=== PATIENT | female | born 1960 | race Caucasian/White ===

== ENCOUNTER 2022-01-25 03:33 | Emergency (ER) | payer MEDICARE, MEDICAID, SELFPAY ==
--- NOTE | 2022-01-25 03:30 | ECG_ITS ---
APPROVED REPORT Exam: Resting ECG HR:106 bpm ECG Measurements Heart Rate 106 AXES UT 164 P 77 QRSd 91 QRS 105 QT 325 T 69 QTc 387 Conclusion SINUS TACHYCARDIA WITH OCCASIONAL SUPRAVENTRICULAR PREMATURE COMPLEXES RIGHT AXIS DEVIATION [QRS AXIS > 100] PATTERN CONSISTENT WITH PULMONARY DISEASE ABNORMAL ECG UNCONFIRMED REPORT Electronically signed by : Lee Montaño MD 01/26/2022 07:13:29
[2022-01-25 03:39] VITALS: BP 140/89; PULSE 107; RESP 20; TEMP 38.7; O2SAT 95; BMI 28.3
--- NOTE | 2022-01-25 03:48 | HMH.EDURI ---
Discharge Plan Disposition Patient Disposition: Home, Self-Care Prescriptions Prescriptions: New azithromycin [azithromycin] 250 mg tablet 250 mg PO DIRECTED Qty: 6 0RF Rx Instructions: Take two (2) tablets on day #1, then one (1) tablet day #2 thru #5 benzonatate 100 mg Capsule 100 mg PO Q8H Qty: 20 0RF prednisone [prednisone] 20 mg tablet 20 mg PO DAILY Qty: 7 0RF No Action nifedipine 30 mg Tablet Extended Release 24hr 30 mg PO DAILY fluticasone propion-salmeterol [Advair Diskus] 250-50 mcg/dose Blister With Device 1 inh INHALATION Q6HP PRN (Reason: asthma) ibuprofen 800 mg Tablet 800 mg PO Q8HP PRN (Reason: Pain) atenolol 100 mg Tablet 100 mg PO DAILY Lactobacillus acidophilus Tablet 1 tab PO DAILY methocarbamol 750 mg Tablet 750 mg PO BID pantoprazole 40 mg Tablet,Delayed Release (Dr/Ec) 40 mg PO DAILY glimepiride 4 mg Tablet 4 mg PO DAILY hydrochlorothiazide 25 mg Tablet 25 mg PO DAILY losartan 100 mg Tablet 100 mg PO DAILY fluticasone propionate [Flonase Allergy Relief] 50 mcg/actuation [place],Suspension 1 spray INTRANASAL DAILY ascorbic acid (vitamin C) [Vitamin C] 500 mg Tablet Extended Release 500 mg PO DAILY ezetimibe 10 mg Tablet 10 mg PO DAILY [place] 3 Capsule 1 cap PO DAILY rosuvastatin 20 mg Tablet 20 mg PO DAILY duloxetine [Cymbalta] 60 mg Capsule,Delayed Release(Dr/Ec) 60 mg PO DAILY insulin glargine 100 unit/mL (3 mL) Insulin Pen 32 unit SQ DAILY aspirin 81 mg Capsule 81 mg PO DAILY Clinical Impressions Clinical Impression: CAP (community acquired pneumonia), COPD exacerbation, Tobacco use Instructions Patient Instructions: Pneumonia-Adult Discharge ED Provider: Addison Oliveira URI/Sore Throat HPI General Chief Complaint: Upper Respiratory Infection Stated Complaint: SOA Time Seen by Provider: 01/25/22 03:48 Mode of Arrival: EMS Source of Information: Patient, EMS and Medical Record Limitations: No Limitations Description of Symptoms (Recalled from ER Triage Doc. by RN): Pt c/o being ill for prior 3 days with a fever, body aches, headache and productive cough. History of Present Illness HPI Narrative: uri sx and cough over the last few days with achey - uses tob Complaint: fever and cough Onset (ago): day(s) Duration: intermittent Severity: moderate Able to tolerate fluids by mouth: Yes Treatments prior to arrival: acetaminophen Related Data Home Medications Medication Instructions Recorded Confirmed Lactobacillus acidophilus 1 tab PO DAILY GERD 01/25/22 01/25/22 ascorbic acid (vitamin C) 500 mg 500 mg PO DAILY Supplement 01/25/22 01/25/22 tablet,extended release (Vitamin C ER) aspirin 81 mg capsule 81 mg PO DAILY heart health 01/25/22 01/25/22 atenolol 100 mg tablet 100 mg PO DAILY htn 01/25/22 01/25/22 duloxetine 60 mg capsule,delayed 60 mg PO DAILY Pain 01/25/22 01/25/22 release (Cymbalta) ezetimibe 10 mg tablet 10 mg PO DAILY hld 01/25/22 01/25/22 fluticasone 250 mcg-salmeterol 50 1 inh inhalation Q6HP PRN asthma 01/25/22 01/25/22 mcg/dose blistr powdr for inhalation (Advair Diskus) fluticasone propionate 50 1 spray intranasal DAILY allergies 01/25/22 01/25/22 mcg/actuation nasal spray,suspension (Flonase Allergy Relief) glimepiride 4 mg tablet 4 mg PO DAILY dm 01/25/22 01/25/22 hydrochlorothiazide 25 mg tablet 25 mg PO DAILY htn 01/25/22 01/25/22 ibuprofen 800 mg tablet 800 mg PO Q8HP PRN Pain 01/25/22 01/25/22 insulin glargine 100 unit/mL (3 32 unit SQ DAILY dm 01/25/22 01/25/22 mL) subcutaneous pen losartan 100 mg tablet 100 mg PO DAILY htn 01/25/22 01/25/22 methocarbamol 750 mg tablet 750 mg PO BID muscle relaxer 01/25/22 01/25/22 nifedipine 30 mg tablet,extended 30 mg PO DAILY htn 01/25/22 01/25/22 release 24 hr omega-3 fatty acids 1 cap PO DAILY Supplement 01/25/22 01/25/22 pantoprazole
--- NOTE | 2022-01-25 03:53 | XR_ITS ---
PROCEDURE INFORMATION: Exam: XR Chest Exam date and time: 01/25/2022 4:07 AM Age: 61 years old Clinical indication: Cough; Additional info: Cough, aching TECHNIQUE: Imaging protocol: Radiologic exam of the chest. Views: 2 views. COMPARISON: No relevant prior studies available. FINDINGS: Lungs: Focal density is seen along the left lateral mid chest. This could represent focal infiltrate. Pleural spaces: Unremarkable. No pleural effusion. No pneumothorax. Heart/Mediastinum: Unremarkable. No cardiomegaly. Bones/joints: Unremarkable. IMPRESSION: Focal density along the left lateral mid chest, infiltrate versus mass. Consider CT for further evaluation to exclude neoplasm.
[2022-01-25 03:58] LABS: Coronavirus 19, PCR Not Detected (NotDetected); Influenza A, PCR Not Detected (NotDetected); Influenza B, PCR Not Detected (NotDetected)
[2022-01-25 03:59] LABS: Basophils # 0.1 K/mm3 (0-0.2); Basophils % 0.9 % (0.1-2.0); Eosinophils # 0.1 K/mm3 (0.0-0.4); Eosinophils % 0.6 % (0.1-12.0); Hematocrit 44.3 % (37.0-47.0); Hemoglobin 14.4 g/dL (12.2-16.2); Lymphocytes # 1.4 K/mm3 (0.7-4.5); Lymphocytes % 18.2 % (10-50); Mean Corpuscular HGB Conc 32.5 g/dL (31.8-35.4); Mean Corpuscular Hemoglobin 30.7 pg (27.0-31.2); Mean Corpuscular Volume 94.4 fl (81-99); Mean Platelet Volume 8.4 fl (7.4-10.4); Monocytes # 0.5 K/mm3 (0.1-1.0); Monocytes % 6.4 % (1.7-9.3); Neutrophils # 5.7 K/mm3 (1.8-7.8); Neutrophils % 73.9 % (37.0-80.0); Platelet Count 211 K/mm3 (142-424); Red Cell Distribution Width 14.8 % (11.5-17.5); White Blood Count 7.8 K/mm3 (4.8-10.8)
[2022-01-25 04:11] LABS: Alanine Aminotransferase 22 U/L (12-78); Albumin/Globulin Ratio 1.4 (1.1-1.8); Alkaline Phosphatase 101 U/L (38-126); Anion Gap 12.7 mEq/L (5-15); Aspartate Amino Transferase 28 U/L (14-36); Bilirubin,Total 0.4 mg/dl (0.2-1.3); Blood Urea Nitrogen 9 mg/dl (7-17); Carbon Dioxide 24 mmol/L (22.0-30.0); Chloride 99 mmol/L (98-107); Creatinine Clearance Estimated 70 mL/min (50-200); Estimated Glomerular Filt Rate 63 ml/min (>60); GFR (African American) 77 ML/MIN (>60); Globulin 2.8 g/dL (1.3-3.2); Glucose 324 mg/dl (74-100); Sodium 133 mmol/L (136-145); Total Protein,Serum 6.8 g/dl (6.3-8.2)
--- NOTE | 2022-01-25 04:12 | PC.NURSE ---
Pt gone to RAD for xrays
[2022-01-25 04:16] LABS: Potassium 2.7 mmoL/L (3.5-5.1)
--- NOTE | 2022-01-25 04:20 | PC.NURSE ---
Pt back from RAD
[2022-01-25 04:24] LABS: Troponin I < 0.01 ng/ml (0.00-0.034)
--- NOTE | 2022-01-25 05:07 | CT_ITS ---
PROCEDURE INFORMATION: Exam: CT Chest Without Contrast; Diagnostic Exam date and time: 01/25/2022 5:23 AM Age: 61 years old Clinical indication: Abnormal findings; Abnormal radiologic exam of lung or chest; Additional info: Abnormal xray TECHNIQUE: Imaging protocol: Diagnostic computed tomography of the chest without contrast. Radiation optimization: All CT scans at this facility use at least one of these dose optimization techniques: automated exposure control; mA and/or kV adjustment per patient size (includes targeted exams where dose is matched to clinical indication); or iterative reconstruction. COMPARISON: CR XR CHEST 2V 01/25/2022 4:07 AM FINDINGS: Lungs: Focal airspace disease is seen in the lingula. Several air bronchograms are identified. Pleural spaces: Unremarkable. No pneumothorax. No pleural effusion. Heart: Unremarkable. No cardiomegaly. No pericardial effusion. Coronary arteries: Coronary atherosclerosis. Lymph nodes: Unremarkable. No enlarged lymph nodes. Vasculature: Unremarkable. No aortic aneurysm. Bones/joints: Unremarkable. No acute fracture. Soft tissues: This extends up to the left chest wall. No chest wall abnormalities are noted. IMPRESSION: 1. Focal airspace disease in the lingula likely infiltrate. 2. Coronary atherosclerosis.
[2022-01-25 05:22] LABS: Lactic Acid 2.8 mmol/L (0.7-2.1)
--- NOTE | 2022-01-25 05:25 | PC.NURSE ---
pt to ct scan
[2022-01-25 06:30] VITALS: PULSE 88; PULSE 91
[2022-01-25 06:39] VITALS: BP 108/78; PULSE 80; RESP 18; TEMP 36.8; O2SAT 100
[2022-01-25 06:45] LABS: Hemoglobin A1C 8.3 % (4.0-6.0)
--- NOTE | 2022-01-25 07:30 | PC.NURSE ---
0730 DIABETIC DIET SET-UP FOR PT AT THIS TIME
== END 2022-01-25 07:50 | disposition home or self-care (01) ==
PROVIDERS: Emergency Provider Emergency Medicine; PCP Family Medicine
DX: J44.1 Chronic obstructive pulmonary disease with (acute) exacerbation (principal); R50.9 Fever, unspecified; M79.10 Myalgia, unspecified site; R05.9 Cough, unspecified; R51.9 Headache, unspecified; R06.02 Shortness of breath; Z20.822 Contact with and (suspected) exposure to COVID-19; F17.200 Nicotine dependence, unspecified, uncomplicated; Z79.1 Long term (current) use of non-steroidal anti-inflammatories (NSAID); Z79.51 Long term (current) use of inhaled steroids; Z79.52 Long term (current) use of systemic steroids; Z79.82 Long term (current) use of aspirin; Z79.899 Other long term (current) drug therapy; Z88.5 Allergy status to narcotic agent; Z88.8 Allergy status to other drugs, medicaments and biological substances
CPT/HCPCS: 71046; 71250; 80053; 83036; 83605; 84484; 85025; 87040; 87070; 87205; 93005; 96361; 96374; 96375; 99285; C9803; J0456; J0696; U0003; U0005

== ENCOUNTER 2022-11-12 23:17 | Emergency (ER) | payer MEDICARE, MEDICAID, SELFPAY ==
[2022-11-12 23:13] VITALS: BP 90/51; PULSE 73; RESP 16; TEMP 36.8; O2SAT 92; BMI 29.9
[2022-11-12 23:18] VITALS: PULSE 71; O2SAT 93
[2022-11-12 23:18] LABS: POC Glucose,Bedside 207 (70-110)
--- NOTE | 2022-11-12 23:35 | PC.NURSE ---
family at bedside
--- NOTE | 2022-11-13 00:11 | PC.NURSE ---
rounded on patient no new complaints noted.
--- NOTE | 2022-11-13 00:24 | HMH.EDGENADL ---
Discharge Plan Disposition Patient Disposition: Home, Self-Care Prescriptions Prescriptions: No Action nifedipine 30 mg Tablet Extended Release 24hr 30 mg PO DAILY fluticasone propion-salmeterol [Advair Diskus] 250-50 mcg/dose Blister With Device 1 inh INHALATION Q6HP PRN (Reason: asthma) ibuprofen 800 mg Tablet 800 mg PO Q8HP PRN (Reason: Pain) atenolol 100 mg Tablet 100 mg PO DAILY Lactobacillus acidophilus Tablet 1 tab PO DAILY methocarbamol 750 mg Tablet 750 mg PO BID pantoprazole 40 mg Tablet,Delayed Release (Dr/Ec) 40 mg PO DAILY glimepiride 4 mg Tablet 4 mg PO DAILY hydrochlorothiazide 25 mg Tablet 25 mg PO DAILY losartan 100 mg Tablet 100 mg PO DAILY fluticasone propionate [Flonase Allergy Relief] 50 mcg/actuation [place],Suspension 1 spray INTRANASAL DAILY ascorbic acid (vitamin C) [Vitamin C] 500 mg Tablet Extended Release 500 mg PO DAILY ezetimibe 10 mg Tablet 10 mg PO DAILY [place] 3 Capsule 1 cap PO DAILY rosuvastatin 20 mg Tablet 20 mg PO DAILY duloxetine [Cymbalta] 60 mg Capsule,Delayed Release(Dr/Ec) 60 mg PO DAILY insulin glargine 100 unit/mL (3 mL) Insulin Pen 32 unit SQ DAILY aspirin 81 mg Capsule 81 mg PO DAILY azithromycin [azithromycin] 250 mg tablet 250 mg PO DIRECTED Qty: 6 0RF Rx Instructions: Take two (2) tablets on day #1, then one (1) tablet day #2 thru #5 benzonatate 100 mg Capsule 100 mg PO Q8H Qty: 20 0RF prednisone [prednisone] 20 mg tablet 20 mg PO DAILY Qty: 7 0RF Referrals Follow up/Referrals: Provider,Referral, MD [Primary Care Provider] - See instructions Activity Restrictions/Add. Instructions Additional Instructions/Restrictions: Please follow-up with your primary care provider. Please return to the emergency department if you develop any new or worsening symptoms or become concerned for your health. Clinical Impressions Clinical Impression: Alcohol intoxication Qualifiers: Complication of substance-induced condition: with delirium Qualified Code(s): F10.921 - Alcohol use, unspecified with intoxication delirium Instructions Patient Instructions: DI for Altered Mental Status Discharge ED Provider: Haim De La Torre Adult [facility] General Chief complaint: Altered Mental Status Stated complaint: altered mental status Time Seen by Provider: 10/05/23 23:20 Mode of Arrival: EMS Limitations: No Limitations Description of Symptoms (Recalled from ER Triage Doc. by RN): EMS was called due to patient being unresponsive. Patient is alert on arrival, but confused. History of Present Illness HPI narrative: 62-year-old female history of COPD, insulin-dependent diabetes, presents with alcohol intoxication and altered mental status. Patient was reportedly drinking at home with family when she became unresponsive. No reported trauma. They were concerned that her blood sugar was low. On arrival with EMS patient's blood sugar was normal, the 100 range. Patient is awake and interactive, slurred speech, denies chest pain abdominal pain headache dizziness or any other particular symptoms at this time. She reports that she has been drinking whiskey at home, had multiple glasses. She reports that she does not usually drink. She was celebrating/lamenting her recent 62th birthday. Related Data Home Medications Medication Instructions Recorded Confirmed Lactobacillus acidophilus 1 tab PO DAILY GERD 01/25/22 01/25/22 ascorbic acid (vitamin C) 500 mg 500 mg PO DAILY Supplement 01/25/22 01/25/22 tablet,extended release (Vitamin C ER) aspirin 81 mg capsule 81 mg PO DAILY heart health 01/25/22 01/25/22 atenolol 100 mg tablet 100 mg PO DAILY htn 01/25/22 01/25/22 duloxetine 60 mg capsule,delayed 60 mg PO DAILY Pain 01/25/22 01/25/22 release (Cymbalta) ezetimibe 10 mg tablet 10 mg PO DAILY hld 01/25/22 01/25/22 fluticasone 250 mcg-salmeter
[2022-11-13 00:32] VITALS: BP 98/77; PULSE 87; RESP 16; O2SAT 96
[2022-11-13 01:00] VITALS: BP 89/62; PULSE 76; O2SAT 92
--- NOTE | 2022-11-13 01:35 | PC.NURSE ---
Rounded on patient, patient resting at this time.
[2022-11-13 01:56] VITALS: BP 107/65
--- NOTE | 2022-11-13 02:16 | PC.NURSE ---
in room talking with patient at this time.
[2022-11-13 02:29] LABS: POC Glucose,Bedside 162 (70-110)
--- NOTE | 2022-11-13 03:24 | PC.NURSE ---
Patient resting, breathing even and unlabored. Patient awakens to voice.
--- NOTE | 2022-11-13 05:11 | PC.NURSE ---
attempted to call both contacts listed without success. waiting on return call. patient is sleeping, audible snoring overheard. vss. no distress noted.
[2022-11-13 07:36] VITALS: BP 106/73; PULSE 69; O2SAT 89
--- NOTE | 2022-11-13 07:41 | PC.NURSE ---
Attempted to call both contacts in patients chart with no success, VM's left. Asked patient if there was anyone we could call and she reports she doesn't no anyone's number.
--- NOTE | 2022-11-13 07:44 | PC.NURSE ---
Breakfast tray ordered
[2022-11-13 08:01] VITALS: BP 113/75; PULSE 82; O2SAT 89
--- NOTE | 2022-11-13 08:04 | PC.NURSE ---
Called pt's , Abhishek, per pt's request to picking belt operator pt. Left voicemail
--- NOTE | 2022-11-13 08:09 | PC.NURSE ---
Pt awake and sitting up in bed, given breakfast tray.
--- NOTE | 2022-11-13 08:59 | PC.NURSE ---
pt sitting up on the side of the bed
[2022-11-13 09:14] VITALS: BP 113/75; PULSE 82; RESP 16; TEMP 36.7
== END 2022-11-13 09:15 | disposition home or self-care (01) ==
PROVIDERS: Emergency Medicine; Emergency Provider Emergency Medicine
DX: F10.921 Alcohol use, unspecified with intoxication delirium (principal); F17.210 Nicotine dependence, cigarettes, uncomplicated; J44.9 Chronic obstructive pulmonary disease, unspecified; E11.65 Type 2 diabetes mellitus with hyperglycemia; Z79.4 Long term (current) use of insulin
CPT/HCPCS: 82962; 96361; 96374; 99284

== ENCOUNTER 2023-03-20 20:43 | Emergency (ER) | payer MEDICARE, MEDICAID, SELFPAY ==
[2023-03-20 20:57] VITALS: BP 144/90; PULSE 82; RESP 19; TEMP 36.8; O2SAT 99; BMI 28.9
--- NOTE | 2023-03-20 21:06 | ED_ITS ---
Discharge Plan Disposition Patient Disposition: Home, Self-Care Prescriptions Prescriptions: New clindamycin HCl 300 mg capsule 300 mg PO Q6H 7 Days Qty: 28 0RF No Action cetirizine [Allergy Relief (cetirizine)] 10 mg tablet 10 mg PO DAILY PRN (Reason: allergy symptoms) Qty: 30 0RF triamcinolone acetonide 0.5 % cream 1 applic topical BID Qty: 15 1RF cephalexin 500 mg capsule 500 mg PO QID 7 Days Qty: 28 0RF nifedipine 30 mg Tablet Extended Release 24hr 30 mg PO DAILY fluticasone propion-salmeterol [Advair Diskus] 250-50 mcg/dose Blister With Device 1 inh INHALATION Q6HP PRN (Reason: asthma) ibuprofen 800 mg Tablet 800 mg PO Q8HP PRN (Reason: Pain) atenolol 100 mg Tablet 100 mg PO DAILY Lactobacillus acidophilus Tablet 1 tab PO DAILY pantoprazole 40 mg Tablet,Delayed Release (Dr/Ec) 40 mg PO DAILY glimepiride 4 mg Tablet 4 mg PO DAILY hydrochlorothiazide 25 mg Tablet 25 mg PO DAILY losartan 100 mg Tablet 100 mg PO DAILY fluticasone propionate [Flonase Allergy Relief] 50 mcg/actuation [place],Suspension 1 spray INTRANASAL DAILY ascorbic acid (vitamin C) [Vitamin C] 500 mg Tablet Extended Release 500 mg PO DAILY ezetimibe 10 mg Tablet 10 mg PO DAILY [place] 3 Capsule 1 cap PO DAILY rosuvastatin 20 mg Tablet 20 mg PO DAILY duloxetine [Cymbalta] 60 mg Capsule,Delayed Release(Dr/Ec) 60 mg PO DAILY insulin glargine 100 unit/mL (3 mL) Insulin Pen 32 unit SQ DAILY aspirin 81 mg Capsule 81 mg PO DAILY Referrals Follow up/Referrals: Roni Mckeon MD [Primary Care Provider] - See instructions Albin Louis DO [Staff Physician] - See instructions Activity Restrictions/Add. Instructions Additional Instructions/Restrictions: At this time it was felt you are safe to be discharged home. If new or worsening symptoms please do not hesitate to return the emergency department. It is possible that this is an infection, however it is also possible that this is an inflammatory breast cancer so it is very important that you call and schedule an appointment with Dr. Louis and maintain your mammogram appointment. Please take Tylenol and ibuprofen as needed for pain and continue to use warm compresses as discussed. Please take your antibiotics as prescribed. Clinical Impressions Clinical Impression: Nipple pain, Nipple anomaly Discharge ED Provider: Alan Edwards General Adult HPI General Chief complaint: Skin/Abscess/Foreign Body Stated complaint: LT breast tender and red Time Seen by Provider: 03/20/23 21:05 Mode of Arrival: Family Vehicle Source of Information: Patient Limitations: No Limitations Description of Symptoms (Recalled from ER Triage Doc. by RN): 62 yo female presents with left nipple swelling and drainage that began yesterday. Stated she noticed her nipple was sensitive, but that it has now tripled in size of the right one. Patient rates pain 10/10 when anything touches it. Afebrile. Nxt scooby sched 04/01 History of Present Illness HPI narrative: Patient is a 62-year-old female with familial history of breast cancer who presents emergency department for evaluation of left nipple swelling. Onset was acute, over the last 24 hours, left nipple is asymmetrically enlarged compared to the contralateral side, she awoke with dried blood in her inframammary fold. Due to significant pain refractory to warm compress she presents here for continued evaluation. Related Data Home Medications Medication Instructions Recorded Confirmed Lactobacillus acidophilus 1 tab PO DAILY GERD 01/25/22 02/11/23 ascorbic acid (vitamin C) 500 mg 500 mg PO DAILY Supplement 01/25/22 02/11/23 tablet,extended release (Vitamin C ER) aspirin 81 mg capsule 81 mg PO DAILY heart health 01/25/22 02/11/23 atenolol 100 mg tablet 100 mg PO DAILY htn 01/25/22 02/11/23 duloxetine 60 mg capsule,delayed 60 mg PO DAILY Pain 01/25/22 02/11/23 release (Cymbalta) ezetimibe 10 mg tablet 10 mg PO DAILY hld 01/25/22 02/11/23 fluticasone 250 mcg-salmeterol 50 1 inh inhalation Q6HP PRN asthma 01/25/22 02/11/23 mcg/dose blistr powdr for inhalation (Advair Diskus) fluticasone propionate 50 1 spray intranasal DAILY allergies 01/25/22 02/11/23 mcg/actuation nasal spray,suspension (Flonase Allergy Relief) glimepiride 4 mg tablet 4 mg PO DAILY dm 01/25/22 02/11/23 hydrochlorothiazide 25 mg tablet 25 mg PO DAILY htn 01/25/22 02/11/23 ibuprofen 800 mg tablet 800 mg PO Q8HP PRN Pain 01/25/22 02/11/23 insulin glargine 100 unit/mL (3 32 unit SQ DAILY dm 01/25/22 02/11/23 mL) subcutaneous pen losartan 100 mg tablet 100 mg PO DAILY htn 01/25/22 02/11/23 nifedipine 30 mg tablet,extended 30 mg PO DAILY htn 01/25/22 02/11/23 release 24 hr omega-3 fatty acids 1 cap PO DAILY Supplement 01/25/22 02/11/23 pantoprazole 40 mg tablet,delayed 40 mg PO DAILY GERD 01/25/22 02/11/23 release rosuvastatin 20 mg tablet 20 mg PO DAILY hld 01/25/22 02/11/23 Previous Rx's Medication Instructions Recorded cephalexin 500 mg capsule 500 mg PO QID 7 days #28 caps 02/11/23 cetirizine 10 mg tablet (Allergy 10 mg PO DAILY PRN allergy 02/11/23 Relief (cetirizine)) symptoms #30 tabs triamcinolone acetonide 0.5 % 1 applic topical BID #15 grams 02/11/23 topical cream clindamycin HCl 300 mg capsule 300 mg PO Q6H 7 days #28 caps 03/20/23 Allergies Allergy/AdvReac Type Severity Reaction Status Date / Time codeine Allergy Verified 02/11/23 13:23 metronidazole [From Flagyl] Allergy Verified 02/11/23 13:23 shellfish derived Allergy Verified 02/11/23 13:23 Sulfa (Sulfonamide AdvReac Rash Verified 02/11/23 13:24 Antibiotics) [facility] Disclaimer: The information contained in this section may have been updated after the patient was seen, as this information can be updated by other users. Medical History (Updated 03/20/23 @ 21:13 by Alan Edwards MD) Alcohol intoxication COPD exacerbation Hyperlipidemia Hypertension Tobacco use Type 2 diabetes mellitus Surgical History (Updated 02/11/23 @ 13:27 by Franco Askew) No significant past surgical history Family History (Updated 02/11/23 @ 13:27 by Franco Askew) Other No significant family history Social History (Updated 12/18/22 @ 06:27 by Addison Oliveira MD) Smoking Status: Former smoker alcohol intake: never current occupational status: employed Travel in the last 8 weeks: None ROS Obtained: Yes Systems reviewed as appropriate & no additional complaints except as documented Physical Exam General General appearance: alert and in no apparent distress Head Head exam: atraumatic and normocephalic Eye Eye exam: Present PERRL ENT ENT exam: Present mucous membranes moist Neck Neck exam: Present normal inspection Chest Chest inspection: Present normal inspection and symmetric chest wall rise Respiratory Respiratory exam: Present normal lung sounds bilaterally; Absent respiratory distress Cardiovascular Cardiovascular exam: Present regular rate and normal rhythm Abdominal Exam Abdominal exam: Present soft Extremities Exam Extremities exam: Present normal inspection Neurological Exam Neurological exam: Present alert Psychiatric Psychiatric exam: Present normal affect Skin Skin exam: Present warm, dry and other (Supervisor Paper Testing present, left nipple enlarged compared to the right, erythematous, no purulence is able to be expressed, no streaking erythema along the breast or areola. Significant tenderness) Medical Decision Making Jerome Inquiry Pt receiving controlled substance: No Vital Signs: 03/20/23 20:57 Temperature 98.2 F Temperature Source Oral Pulse Rate [Right Brachial] 82 Respiratory Rate 19 Blood Pressure [Right Arm] 144/90 H Blood Pressure Mean [Right Arm] 108 Blood Pressure Source [Right Arm] Automatic Cuff Blood Pressure Position [Right Arm] Sitting 02 Sat by Pulse Oximetry 99 Oxygen Delivery Method Room Air Medical Decision Narrative: In summary patient is a 62-year-old female past medical history described above presents emergency department for evaluation of breast pain. Patient is hemodynamically stable nontoxic-appearing upon arrival, afebrile. Differential diagnosis includes non-puerperal mastitis, inflammatory breast cancer, among others. Workup with labs and imaging is not indicated at this time. Patient has mammogram scheduled for the of this month. She wishes to establish care here for which she will be referred to Dr. Louis. Patient was instructed to continue warm compresses, Tylenol and ibuprofen as needed for pain, and will be discharged with a course of clindamycin given that she is allergic to sulfa drugs for appropriate gram-positive and MRSA coverage. Critical Care Critical Care Time Critical Care Time: No
[2023-03-20 21:29] VITALS: BP 138/70; PULSE 71; RESP 19; TEMP 36.8; O2SAT 98
== END 2023-03-20 21:30 | disposition home or self-care (01) ==
PROVIDERS: Emergency Provider Emergency Medicine; PCP Family Medicine
DX: N64.4 Mastodynia (principal); N64.9 Disorder of breast, unspecified; J44.9 Chronic obstructive pulmonary disease, unspecified; E78.5 Hyperlipidemia, unspecified; I10 Essential (primary) hypertension; E11.9 Type 2 diabetes mellitus without complications; Z87.891 Personal history of nicotine dependence
CPT/HCPCS: 99283

== ENCOUNTER 2023-04-01 13:27 | Outpatient (CLI) | payer MEDICARE, SELFPAY ==
[2023-04-01 13:45] LABS: Chol/HDL Ratio 3.1 (1-3.5); Cholesterol 146 mg/dl (140-200); HDL Cholesterol 47 mg/dl (40-60); Triglycerides 236 mg/dl (30-150); VLDL Cholesterol 47 mg/dL (0-40)
[2023-04-01 13:56] LABS: Direct LDL Cholesterol 58.06 mg/dL (100-129)
== END 2023-04-01 23:59 ==
LOC: LAB.DROPOF 13:28
PROVIDERS: PCP Internal Medicine; Visit Provider Internal Medicine
DX: E78.1 Pure hyperglyceridemia (principal)
CPT/HCPCS: 80061

== ENCOUNTER 2023-04-12 15:28 | Outpatient (CLI) | payer MEDICARE, SELFPAY ==
--- NOTE | 2023-04-12 15:28 | MM_ITS ---
PROCEDURE INFORMATION: Exam: Bilateral Screening 3D Mammography Exam date and time: 04/12/2023 3:23 PM Age: 62 years old Clinical indication: Screening examination TECHNIQUE: Imaging protocol: Bilateral Screening tomosynthesis and 2D mammography including computer-aided detection (CAD) when performed. COMPARISON: [facility] DIGITJs BILAT 02/23/2013 10:41 AM FINDINGS: MAMMOGRAPHY: Breast composition: There are scattered areas of fibroglandular density. Mass: None. Architectural distortion: None. Calcifications: No suspicious calcifications. Asymmetric density: None. Skin thickening: None. Axillary adenopathy: None. IMPRESSION: No mammographic evidence of malignancy. Annual screening is recommended unless otherwise clinically indicated. ASSESSMENT: BI-RADS Category 1: Negative
== END 2023-04-12 23:59 ==
LOC: RAD 15:28
PROVIDERS: PCP Internal Medicine; Visit Provider Internal Medicine
DX: Z12.31 Encounter for screening mammogram for malignant neoplasm of breast (principal)
CPT/HCPCS: 77063; 77067

== ENCOUNTER 2023-04-14 15:10 | Outpatient (CLI) | payer MEDICARE, SELFPAY ==
[2023-04-14 15:35] LABS: Basophils # 0.1 K/mm3 (0-0.2); Basophils % 0.7 % (0.1-2.0); Eosinophils # 0.2 K/mm3 (0.0-0.4); Eosinophils % 2.2 % (0.1-12.0); Hematocrit 47.8 % (37.0-47.0); Hemoglobin 15.3 g/dL (12.2-16.2); Lymphocytes # 2.9 K/mm3 (0.7-4.5); Lymphocytes % 39.3 % (10-50); Mean Corpuscular HGB Conc 32.1 g/dL (31.8-35.4); Mean Corpuscular Hemoglobin 31.8 pg (27.0-31.2); Mean Corpuscular Volume 99.1 fl (81-99); Mean Platelet Volume 7.9 fl (7.4-10.4); Monocytes # 0.4 K/mm3 (0.1-1.0); Neutrophils # 3.9 K/mm3 (1.8-7.8); Neutrophils % 52.8 % (37.0-80.0); Platelet Count 197 K/mm3 (142-424); Red Blood Count 4.83 M/mm3 (4.20-5.40); Red Cell Distribution Width 15.6 % (11.5-17.5); White Blood Count 7.3 K/mm3 (4.8-10.8)
[2023-04-14 15:52] LABS: Anion Gap 13.7 mEq/L (5-15); Blood Urea Nitrogen 19 mg/dl (7-17); Calcium 8.9 mg/dl (8.4-10.2); Carbon Dioxide 25 mmol/L (22.0-30.0); Chloride 105 mmol/L (98-107); Estimated Glomerular Filt Rate 56 ml/min (>60); GFR (African American) 68 ML/MIN (>60); Glucose 202 mg/dl (74-100); Magnesium 1.7 mg/dl (1.6-2.3); Potassium 3.7 mmoL/L (3.5-5.1); Sodium 140 mmol/L (136-145)
[2023-04-14 16:10] LABS: Free T4 (Free Thyroxine) 0.99 ng/dl (0.78-2.19)
[2023-04-14 16:22] LABS: Thyroid Stimulating Hormone 1.38 uIU/mL (0.465-4.68)
[2023-04-14 16:53] LABS: Hemoglobin A1C 8.4 % (4.0-6.0)
== END 2023-04-14 23:59 ==
LOC: LAB 15:11
PROVIDERS: PCP Internal Medicine; Visit Provider Internal Medicine
DX: R06.00 Dyspnea, unspecified (principal); I20.89 Other forms of angina pectoris; R00.2 Palpitations; I65.29 Occlusion and stenosis of unspecified carotid artery; E11.9 Type 2 diabetes mellitus without complications; I10 Essential (primary) hypertension; E78.5 Hyperlipidemia, unspecified; Z79.4 Long term (current) use of insulin; Z79.899 Other long term (current) drug therapy
CPT/HCPCS: 36415; 80048; 83036; 83735; 84439; 84443; 85025; 93270

== ENCOUNTER 2023-04-23 12:07 | Outpatient (CLI) | payer MEDICARE, MEDICAID, SELFPAY ==
--- NOTE | 2023-04-23 | CA_ITS ---
APPROVED REPORT Exam: Pharmacologic Technologist: Angela Barnes, Ht: 5 ft 5 in Wt: 165 lbs BSA: 1.82 m2 HR: 68 bpm BP: 140/85 mmHg Rhythm: NSR, PAC Medical History Medical History: HTN, Hyperlipidemia, Diabetes Medications: Aspirin,,,,, Atenolol,,,,, Vitamin C,,,,, Fish Oil,,,,, Losartan,,,,, Pantoprazole,,,,, Glimepiride,,,,, HCTZ,,,,, Flonase,,,,, ADVAIR,,,,, Cymbalta,,,,, CetIRIZINE,,,,, Allergies: CODEINE, FALGYL, SULFA, SHELLFISH Cardiac Risk Factors: HTN, Hyperlipidemia, Diabetes Stress Test Details Test: LEXISCAN HR Resting HR: 70 bpm Max Heart Rate (APMHR): 156 bpm Max HR Achieved: 95 bpm Target HR (85% APMHR): 133 bpm % of APMHR: 61 Recovery HR: 76 bpm BP Resting BP: 140/85 mmHg Max BP: 148/86 mmHg Recovery BP: 138.0/86.0 mmHg ECG Resting ECG: NSR, PACs, right axis deviation Stress ECG: No significant ST changes Arrhythmia: PACs Clinical Exercise duration: 04:00 min Highest Stage Achieved: Exercise capacity: 1.0 METs Stress ECG Conclusion Patient developed dyspnea, no chest pain. Ectopy: Occasional PACs ST changes. No significant ST changes Conclusion: Unremarkable Lexiscan stress test. Myoview images reported separately. Test Summary REST . . . . . . . Resting REST 02:54 . . 70 . 140/ 85 . . Stage 1 01:00 . . 86 . . . . Stage 2 01:00 . . 84 . 138/ 88 . . Stage 3 01:00 . . 82 . 137/ 85 . . Stage 4 01:00 . . 82 . . . Stop exercise at 04:00 RECOVERY 01:00 . . 81 . . . . RECOVERY 02:00 . . 78 . 148/ 86 . . RECOVERY 03:00 . . 76 . 148/ 86 . . RECOVERY 03:39 . . 77 . 138/ 86 . . Electronically signed by : Laurita Hardin MD 04/27/2023 11:25:16
--- NOTE | 2023-04-23 12:08 | NM_ITS ---
APPROVED REPORT Exam: Nuclear Stress Test Indication: HTN, DM, HYPERLIPIDEMIA, TOB USE, FM HX, SOB, PALPITATIONS, FATIGUE Patient Location: Outpatient Stress Tech: Angela Dunbar [place] Tech:BEV Wilson RT (R)(N)(M) Ht: 5 ft 5 in Wt: 170 lbs Bra Size: DD HR: 68 bpm BP: 140/85 mmHg BSA: 1.85 m2 TID: 1.10 BMI: 28.2 History: HTN, DM, HYPERLIPIDEMIA, TOB USE, FM HX, SOB, PALPITATIONS, FATIGUE Procedure: Patient received 0.4 mg of intravenous Lexiscan, resting heart rate 68 bpm, resting blood pressure 140/85 mmHg, with Lexiscan maximum heart rate achieved was 85 bpm which is % of the maximum predicted heart rate and blood pressure was 138/88 mmHg. With Lexiscan, patient denied any complaint of chest pain. Cardiac Stress and Resting SPECT Images: Cardiac Stress and Resting SPECT images were obtained using technetium 99m Myoview 31.8 mCi stress and 10.60 mCi at rest. Resting and stress imaging in supine and prone positions demonstrate no evidence of fixed or reversible perfusion defects. Gated imaging demonstrates mild reduction in global LV systolic function. LVEF cannot be calculated due to technical reasons during image acquisition. Conclusion: No evidence of fixed or reversible perfusion defects. Gated imaging demonstrates mild reduction in global LV systolic function. LVEF cannot be calculated due to technical reasons during image acquisition. Electronically signed by : Laurita Hardin MD 04/27/2023 11:27:20
[2023-04-23] MEDS: SODIUM CHLORIDE 0.9% 10ML SYR (RAD ONLY) 10 ML IV ×2 (12:20→13:40)
[2023-04-23] MEDS: REGADENOSON 0.4MG/5ML SYRINGE 0.400000000000000022 MG IV (13:40)
--- NOTE | 2023-04-23 13:54 | CA_ITS ---
APPROVED REPORT EXAM: Comprehensive 2D, Doppler, and color-flow Echocardiogram Plastic Welding Machine Operator: Deepika Beth RT(R) Ht: 5 ft 5 in Wt: 165lbs BSA: 1.82 BP: 173/85 mmHg Indications: dyspnea, CAD, COPD exacerbation, smoking, fatigue, left edema, HTN, DM, SOB, obesity, hyperlipidemia. 2D Dimensions LA Volume 25.00 mL LA Volume Index 13.74 mL/m2 (M/F) 16-34 EF AP4 45.70 % GL Strain -10.8 % M-Mode Dimensions RVDd 2.32 cm (0.9-2.6) LA Diam 1.75 cm (1.9-4.0) LVDd 4.86 cm (3.5-5.7) LVDs 3.61 cm (3.5-5.7) IVSd 1.18 cm (0.6-1.1) PWd 0.91 cm (0.6-1.1) EF (Teich) 50.50% FS 25.70% EDV (Teich) 110.70 mL ESV (Teich) 54.80 mL LV Diastology E Decel Time 203 (160-240 msec) E/A Ratio 0.7 Mitral Valve MV E Max Alexandr. 63.0 (40-130 cm/s) MV A Velocity 85.0 (40-130 cm/s) E/A Ratio 0.74 MV PHT 60.0 ms Tricuspid Valve TR P. Velocity 248.00 cm/s RAP Estimate 10.00 mmHg RVSP 34.60 mmHg Left Ventricle The left ventricle is normal size. The left ventricular systolic function is normal. The left ventricular ejection fraction is within the normal range. There is increased LV wall thickness. There is normal LV segmental wall motion. Transmitral Doppler flow pattern suggests impaired LV relaxation. LVEF is 60%. Right Ventricle The right ventricle is mildly dilated. The right ventricular systolic function is normal. Atria The left atrium size is normal. The right atrium size is normal. There is no Doppler evidence of interatrial shunt. Aortic Valve The aortic valve is mildly thickened. There is no aortic valvular stenosis. No aortic regurgitation is present. Mitral Valve The mitral valve is normal in structure. No evidence of mitral valve stenosis. Trace mitral regurgitation. Tricuspid Valve The tricuspid valve leaflets are thin and pliable. Trace tricuspid regurgitation. There is insufficient TR jet to estimate RVSP. Pulmonic Valve The pulmonary valve is normal in structure. Trace pulmonic regurgitation. Great Vessels The aortic root is normal in size. The ascending aorta is normal in size. IVC is normal in size and collapses >50% with inspiration. Pericardium There is no pericardial effusion. An epicardial fat pad is noted. Other Information Study Quality: Fair Conclusion Normal biventricular systolic function. Mild RV dilation. No significant valvular stenosis or regurgitation. Electronically signed by : Laurita Hardin MD 04/26/2023 23:28:36
[2023-04-23] MEDS: ISOTOPE MYOVIEW (PER STUDY) 1 DOSE IV (14:15)
== END 2023-04-23 23:59 ==
LOC: RAD 12:08
PROVIDERS: PCP Internal Medicine; Visit Provider Internal Medicine
DX: R06.00 Dyspnea, unspecified; I20.89 Other forms of angina pectoris; R00.2 Palpitations; I65.29 Occlusion and stenosis of unspecified carotid artery; E11.9 Type 2 diabetes mellitus without complications; I10 Essential (primary) hypertension; E78.5 Hyperlipidemia, unspecified; Z79.4 Long term (current) use of insulin
CPT/HCPCS: 78452; 93017; 93018; 93306; A9502; J2785

== ENCOUNTER 2023-06-04 14:50 | Outpatient (CLI) | payer MEDICARE, MEDICAID, SELFPAY ==
--- NOTE | 2023-06-04 14:54 | CT_ITS ---
FINAL REPORT TECHNIQUE: Axial CT images of the chest were obtained without contrast. Low-dose protocol was utilized. This study was performed with techniques to keep radiation doses as low as reasonably achievable (ALARA). Individualized dose reduction techniques using automated exposure control or adjustment of mA and/or kV according to the patient's size were employed. CLINICAL HISTORY: lung cancer screening, current smoker 40yrs, 0.5ppd, copd, cad COMPARISON: CT chest 01/25/2022 FINDINGS: CT CHEST WITHOUT, LOW DOSE SCREENING CT Di Vol: 2.90 mGy DLP: 106.29 mGy*cm There is no axillary, mediastinal, or hilar adenopathy. The heart size is normal. There is no pleural or pericardial effusion. The lung windows show the previously noted airspace infiltrate in the lingula has resolved. No nodule identified. Limited images of the upper abdomen demonstrate moderate fatty infiltration of the liver. The gallbladder is absent. IMPRESSION: No suspicious mass or nodule. LR Category 1: 12 month follow-up low-dose chest CT is recommended. Reviewed, Interpreted and Dictated by Daryl Huizar MD Transcribed by Emy Smyth Authenticated and [facility]
== END 2023-06-04 23:59 | disposition home or self-care (01) ==
LOC: RAD 14:52
PROVIDERS: PCP Internal Medicine; Visit Provider Internal Medicine
DX: F17.218 Nicotine dependence, cigarettes, with other nicotine-induced disorders; Z12.2 Encounter for screening for malignant neoplasm of respiratory organs
CPT/HCPCS: 71271

== ENCOUNTER 2023-06-09 11:29 | Outpatient (CLI) | payer MEDICARE, MEDICAID, SELFPAY ==
[2023-06-09 20:49] LABS: Creatinine,Urine Random 124 mg/dL (Not Estab.)
[2023-06-09 21:16] LABS: Microalbumin > 1140.000 mg/L (0-16.7); Microalbumin/Creatinine Ratio 919.3
== END 2023-06-09 23:59 | disposition home or self-care (01) ==
LOC: LAB.DROPOF 06-10 11:31
PROVIDERS: PCP Internal Medicine; Visit Provider Internal Medicine
DX: E11.69 Type 2 diabetes mellitus with other specified complication (principal); Z79.4 Long term (current) use of insulin
CPT/HCPCS: 82043; 82570

== ENCOUNTER 2023-11-02 15:38 | Outpatient (CLI) | payer MEDICARE, MEDICAID, SELFPAY | END 2023-11-02 23:59 | disposition home or self-care (01) | LOC: LAB.DROPOF 11-03 13:10 | PROVIDERS: PCP Internal Medicine; Visit Provider Internal Medicine | DX: E11.9 Type 2 diabetes mellitus without complications (principal); Z79.4 Long term (current) use of insulin | CPT/HCPCS: 83036 ==

== ENCOUNTER 2023-12-07 16:58 | Outpatient (CLI) | payer MEDICARE, MEDICAID, SELFPAY ==
[2023-12-07 17:19] LABS: Basophils # 0.1 K/mm3 (0-0.2); Basophils % 1.3 % (0.1-2.0); Eosinophils # 0.2 K/mm3 (0.0-0.4); Eosinophils % 1.9 % (0.1-12.0); Hematocrit 44.3 % (37.0-47.0); Lymphocytes # 3.9 K/mm3 (0.7-4.5); Mean Corpuscular HGB Conc 33.8 g/dL (31.8-35.4); Mean Corpuscular Hemoglobin 31.3 pg (27.0-31.2); Mean Corpuscular Volume 92.6 fl (81-99); Mean Platelet Volume 7.8 fl (7.4-10.4); Monocytes # 0.6 K/mm3 (0.1-1.0); Monocytes % 5.9 % (1.7-9.3); Neutrophils # 4.7 K/mm3 (1.8-7.8); Neutrophils % 49.8 % (37.0-80.0); Platelet Count 263 K/mm3 (142-424); Red Blood Count 4.79 M/mm3 (4.20-5.40); Red Cell Distribution Width 14.7 % (11.5-17.5); White Blood Count 9.5 K/mm3 (4.8-10.8)
[2023-12-07 17:41] LABS: Alanine Aminotransferase 20 U/L (12-78); Albumin Level 4.2 g/dl (3.5-5.0); Albumin/Globulin Ratio 1.6 (1.1-1.8); Alkaline Phosphatase 68 U/L (38-126); Anion Gap 17.5 mEq/L (5-15); Aspartate Amino Transferase 26 U/L (14-36); Bilirubin,Total 0.5 mg/dl (0.2-1.3); Blood Urea Nitrogen 26 mg/dl (7-17); Calcium 9.3 mg/dl (8.4-10.2); Carbon Dioxide 25 mmol/L (22.0-30.0); Chloride 101 mmol/L (98-107); Estimated Glomerular Filt Rate 45 ml/min (>60); GFR (African American) 55 ML/MIN (>60); Globulin 2.6 g/dL (1.3-3.2); Glucose 135 mg/dl (74-100); Potassium 3.5 mmoL/L (3.5-5.1); Sodium 140 mmol/L (136-145); Total Protein,Serum 6.8 g/dl (6.3-8.2)
== END 2023-12-07 23:59 | disposition home or self-care (01) ==
LOC: LAB 16:58
PROVIDERS: PCP Internal Medicine; Visit Provider Obstetrics & Gynecology
DX: L02.91 Cutaneous abscess, unspecified (principal)
CPT/HCPCS: 80053; 85025; 87070; 87077; 87186; 87205

== ENCOUNTER 2024-05-02 14:41 | Outpatient (CLI) | payer MEDICARE, MEDICAID, SELFPAY ==
[2024-05-02 14:01] LABS: Creatinine,Urine Random 112 mg/dL (Not Estab.)
[2024-05-02 14:16] LABS: Alanine Aminotransferase 21 U/L (12-78); Albumin/Globulin Ratio 1.7 (1.1-1.8); Alkaline Phosphatase 75 U/L (38-126); Aspartate Amino Transferase 28 U/L (14-36); Bilirubin,Total 0.6 mg/dl (0.2-1.3); Blood Urea Nitrogen 21 mg/dl (7-17); Calcium 9.4 mg/dl (8.4-10.2); Carbon Dioxide 28 mmol/L (22.0-30.0); Chloride 106 mmol/L (98-107); Chol/HDL Ratio 3.3 (1-3.5); Cholesterol 121 mg/dl (140-200); Estimated Glomerular Filt Rate 63 ml/min (>60); GFR (African American) 76 ML/MIN (>60); Globulin 2.3 g/dL (1.3-3.2); Glucose 112 mg/dl (74-100); HDL Cholesterol 37 mg/dl (40-60); Sodium 140 mmol/L (136-145); Total Protein,Serum 6.3 g/dl (6.3-8.2); Triglycerides 183 mg/dl (30-150); VLDL Cholesterol 37 mg/dL (0-40)
[2024-05-02 14:26] LABS: Direct LDL Cholesterol 40.82 mg/dL (100-129)
[2024-05-02 14:59] LABS: Microalbumin/Creatinine Ratio 695.4
[2024-05-02 15:10] LABS: Hemoglobin A1C 7.6 % (4.0-6.0)
== END 2024-05-02 23:59 | disposition home or self-care (01) ==
LOC: LAB.DROPOF 14:42
PROVIDERS: PCP Internal Medicine; Visit Provider Internal Medicine
DX: E11.9 Type 2 diabetes mellitus without complications (principal); Z79.4 Long term (current) use of insulin; Z13.220 Encounter for screening for lipoid disorders
CPT/HCPCS: 80053; 80061; 82043; 82570; 83036

== ENCOUNTER 2024-06-06 10:41 | Outpatient (CLI) | payer MEDICARE, MEDICAID, SELFPAY ==
--- NOTE | 2024-06-06 10:44 | US_ITS ---
FINAL REPORT CLINICAL HISTORY: current smoker, HTN, DM, hyperlipidemia, previous angioplasty, bilateral rest pain, bilateral claudication. FINDINGS: Ankle-brachial indices were obtained. The right BARB is 1.1. The left BARB is 1.1. IMPRESSION: Normal ABIs bilaterally. Reviewed, Interpreted and Dictated by Daryl Huizar MD Transcribed by Shahida Sarmiento Authenticated and [facility]
== END 2024-06-06 23:59 | disposition home or self-care (01) ==
LOC: RT 10:42
PROVIDERS: PCP Internal Medicine; Visit Provider Nurse Practitioner
DX: E11.59 Type 2 diabetes mellitus with other circulatory complications (principal); R09.89 Other specified symptoms and signs involving the circulatory and respiratory systems; Z79.4 Long term (current) use of insulin; Z79.84 Long term (current) use of oral hypoglycemic drugs; Z79.85 Long-term (current) use of injectable non-insulin antidiabetic drugs
CPT/HCPCS: 93923

== ENCOUNTER 2024-07-13 13:57 | Outpatient (CLI) | payer MEDICARE, MEDICAID, SELFPAY ==
[2024-07-13 18:09] LABS: Hemoglobin A1C 6.4 % (4.0-6.0)
[2024-07-13 18:31] LABS: HIV Combo NEGATIVE (Negative)
[2024-07-13 18:40] LABS: Hepatitis C Ab Qual. W/ RFX NEGATIVE (Negative)
== END 2024-07-13 23:59 | disposition home or self-care (01) ==
LOC: LAB.DROPOF 07-14 14:51
PROVIDERS: PCP Internal Medicine; Visit Provider Internal Medicine
DX: E11.9 Type 2 diabetes mellitus without complications (principal); Z79.4 Long term (current) use of insulin; Z11.4 Encounter for screening for human immunodeficiency virus [HIV]; Z11.59 Encounter for screening for other viral diseases
CPT/HCPCS: 83036; 86803; 87389

== ENCOUNTER 2024-09-20 13:37 | Outpatient (CLI) | payer MEDICARE, MEDICAID, SELFPAY ==
--- NOTE | 2024-09-20 13:40 | XR_ITS ---
FINAL REPORT CLINICAL HISTORY: Low back/hip pain COMPARISON: None FINDINGS: SINGLE VIEW PELVIS: A single view of the pelvis was obtained. There is no acute fracture or dislocation. There is advanced degenerative disease present in the hips bilaterally, more pronounced on the right than the left. There is superior migration of the right femoral head in the acetabulum. Soft tissues are unremarkable. 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 Reviewed, Interpreted and Dictated by Merle Sesay MD Transcribed by Carmelina Knutson Authenticated and [facility]
--- NOTE | 2024-09-20 13:40 | XR_ITS ---
FINAL REPORT CLINICAL HISTORY: Low back pain COMPARISON: None FINDINGS: AP and lateral views of the lumbar spine were obtained. There is no prior exam for comparison. There is no acute fracture or malalignment. Vertebral body height is preserved. Multilevel degenerative disease is present, most pronounced at the L2-3 and L4-5 levels. No acute paraspinal abnormality. IMPRESSION: Multilevel degenerative disc disease is present, with no acute osseous abnormality of the lumbar spine. Reviewed, Interpreted and Dictated by Merle Sesay MD Transcribed by Carmelina Knutson Authenticated and [facility]
--- OUTSIDE RECORDS SUMMARY | 2024-09-20 13:42 | XMS_ITS | Encounter Summary ---
[facility] Address [address] [place] [address] Care Team Providers Care Cisco Network Architect Name Role Phone Roni Mckeon MD Primary Care Provider [phone] Reason for Visit * Reason Onset Date Comments Med Refill 06/24/2020 Encounter Details Date Type Department Care Team (Late st Contact Info) Description 06/24/2020 Refill [facility] CARDIOLOGY [address] [facility] [place] [address] Arjun Silva MD [address] [facility] [address] [place], [place] [id number] Med Refill Social History Tobacco Use Types Packs/Day Years Used Date Smoking Tobacco: Every Day Cigarettes 0.3 34 Smokeless Tobacco: Never Comments:1 pack weekly Alcohol Use Standard Drinks/Week Comments Yes 2 (1 standard drink = 0.6 oz pur e alcohol) Occ Comments No Sex and Gender Information Value Date Recorded Sex Assigned at Not on file Legal Sex Female 11:53 AM EDT Gender Identity Not on file Sexual Orientation Not on file documented as of this encounter Plan of Treatment Not on file documented as of this encounter Visit Diagnoses Diagnosis Coronary artery disease of [place] heart with stable angina pectoris, unspecified vessel or lesion type documented in this encounter Care Teams Cisco Network Architect Relationship Specialty Start Date End Date Roni Mckeon MD [address] [facility] [place] [address] PCP - General Family Medicine 03/17/21 documented as of this encounter
--- OUTSIDE RECORDS SUMMARY | 2024-09-20 13:42 | XMS_ITS | Encounter Summary ---
[facility] [address] [place] [address] Care Team Providers Care Software Quality Engineer Name Role Phone Roni Mckeon MD Primary Care Provider Reason for Visit * Reason Onset Date Comments Med Refill 06/24/2020 Encounter Details Date Type Department Care Team (Late st Contact Info) Description 06/24/2020 Refill [facility] ENDOCRINOLOGY [address] [phone] Ely Harry MD [address] [phone] Type 2 diabetes mellitus with hyperglycemia, with long-term current use of insulin Social History Tobacco Use Types Packs/Day Years [...] as of this encounter Visit Diagnoses Diagnosis Type 2 diabetes mellitus with hyperglycemia, with long-term current use of insulin documented in this encounter Care Teams Software Quality Engineer Relationship Specialty Start Date End Date Roni Mckeon MD [address] [place] [address] PCP - General Family Medicine 03/17/21 documented as of this encounter
--- OUTSIDE RECORDS SUMMARY | 2024-09-20 13:42 | XMS_ITS | Encounter Summary ---
[facility] Address [address] [address] Care Team Providers Care Parks And Recreation Manager Name Role Phone Roni Mckeon MD Primary Care Provider [phone] Reason for Visit * Reason Onset Date Comments Med Refill 12/12/2022 Encounter Details Date Type Department Care Team (Late st Contact Info) Description 12/12/2022 Refill [facility] [address] [facility] [address] [place] [id number] Bhavesh Croft PA-C [address] [place] [address] Social History Tobacco Use Types Packs/Day Years Used Date Smoking Tobacco: Every Day Cigarettes 0.3 34 Smokeless Tobacco: Never Comments:1 pack weekly Alcohol Use Standard Drinks/Week Comments Yes 2 (1 standard drink = 0.6 oz pur e alcohol) Occ PHQ-2 Answer Date Recorded Retired PHQ-9: Brief Depression Severity Measure Score 1 02/20/2022 Abuse Screen Answer Date Recorded Unsafe at Home or Work/School Not on file Feels Threatened by Someone? Not on file 12/2022 Does Anyone Keep You from Co ntacting Others or Doint Things Outside the Home? Not on file 11/18/2022 Physical Sign of Abuse Present Not on file 1 Housing Stability Answer Date Recorded Current Living Arrangements Not on file 11/08 Potentially Unsafe Housing Conditions Not on naomie e 11/18/2022 Family and Community Support Answer Shawn e Recorded Help with Day-to-Day Activities Not on file 11/18/2022 Lonely or Isolated Not on file 11/18/2022 Employment Answer Date Recorded Do you want help finding or keeping work or a ronal b? Not on file 11/18/2022 Disabilities Answer Date Recorded Concentrating, Remembering, or Making Decisions Difficulty Not on file 11/18/2022 Doing Errands Independently Difficulty Not on fi le 11/18/2022 Education Answer Date Recorded Help with school or training? Not on file Preferred Language Not on file 11/18/2022 Comments No Sex and Gender Information Value Date Recorded Sex Assigned at Not on file Legal Sex Female 11:53 AM EDT Gender Identity Not on file Sexual Orientation Not on file documented as of this encounter Plan of Treatment Not on file documented as of this encounter Visit Diagnoses Not on filedocumented in this encounter Additional Health Concerns Assessment Noted Time PHQ-2 Depression Total Score: 1 02/20/19 23 11:31 AM EST documented as of this encounter Care Teams Parks And Recreation Manager Relationship Specialty Start Date End Date Roni Mckeon MD [facility] [place] [address] PCP - General Family Medicine 03/17/21 documented as of this encounter
--- OUTSIDE RECORDS SUMMARY | 2024-09-20 13:42 | XMS_ITS | Encounter Summary ---
Author Organization [facility] Address [address] [place] [address] Care Team Providers Care Sales Developer Name Role Phone Roni Mckeon MD Primary Care Provider [phone] Reason for Visit * Reason Comments Med Refill Encounter Details Date Type Department Care Team (Late st Contact Info) Description 12/20/2023 Refill [facility] ENDOCR[facility]OLOG[facility] [address] [phone] Ely Harry MD [address] [facility] [address] [place] [phone] Social History Tobacco Use Types Packs/Day Years Used Date Smoking Tobacco: Every Day Cigarettes 0.3 34 Smokeless Tobacco: Never Comments:1 pack weekly Alcohol Use Standard Drinks/Week Comments Yes 2 (1 standard drink = 0.6 oz pur e alcohol) Occ PHQ-2 Answer Date Recorded Retired PHQ-9: Brief Depression Severity Measure Score 0 12/28/2022 Abuse Screen Answer Date Recorded Unsafe at [...] file Preferred Language Not on file 11/18/2022 PHQ-2 Answer Date Recorded Retired PHQ-9: Brief Depression Severity Measure Score 0 12/28/2022 Comments No Sex and Gender Information Value Date Recorded Sex Assigned at Not on file Legal Sex Female 11:53 AM EDT Gender Identity Not on file Sexual Orientation Not on file documented as of this encounter Plan of Treatment Not on file documented as of this encounter Visit Diagnoses Not on filedocumented in this encounter Care Teams Sales Developer Relationship Specialty Start Date End Date Roni Mckeon MD [facility] [place] [address] PCP - General Family Medicine 03/17/21 documented as of this encounter
--- OUTSIDE RECORDS SUMMARY | 2024-09-20 13:42 | XMS_ITS | Encounter Summary ---
[facility] Address [address] [place] [address] Care Team Providers Care Churner Name Role Phone Roni Mckeon MD Primary Care Provider [phone] Reason for Visit * Reason Onset Date Comments Med Refill 12/24/2020 Encounter Details Date Type Department Care Team (Late st Contact Info) Description 12/24/2020 Refill [facility] FAMILY MEDICINE [address] [facility] [place] [address] Emy Luu, HEALTH CLAIMS EXAMINER [address] [facility] [place] [address] Seasonal allergic rhinitis due to pollen; Other emphysema; Muscle cramp; Mixed hyperlipidemia; Gastroesophageal reflux disease; Essential hypertension; Reactive depression Social History Tobacco Use Types Packs/Day Years [...] as of this encounter Visit Diagnoses Diagnosis Seasonal allergic rhinitis due to pollen Other emphysema Muscle cramp Cramp of limb Mixed hyperlipidemia Gastroesophageal reflux disease Esophageal reflux Essential hypertension Unspecified essential hypertension Reactive depression documented in this encounter Care Teams Churner Relationship Specialty Start Date End Date Roni Mckeon MD [address] [place] [address] PCP - General Family Medicine 03/17/21 documented as of this encounter
--- OUTSIDE RECORDS SUMMARY | 2024-09-20 13:42 | XMS_ITS | Encounter Summary ---
[facility] Address [address] [place] [address] Care Team Providers Care Immigration Lawyer Name Role Phone Roni Mckeon MD Primary Care Provider [phone] Reason for Visit * Reason Onset Date Comments Med Refill 06/23/2020 Encounter Details Date Type Department Care Team (Late st Contact Info) Description 06/23/2020 Refill [facility] FAMILY MEDICINE [address] [facility] [place] [address] Emy Luu, MOBILE HOME SERVICER [address] [place] [address] Seasonal allergic rhinitis due to pollen; Other emphysema; Reactive depression; Muscle cramp; Mixed hyperlipidemia; Gastroesophageal reflux disease; Essential hypertension Social History Tobacco Use Types Packs/Day Years [...] allergic rhinitis due to pollen Other emphysema Reactive depression Muscle cramp Cramp of limb Mixed hyperlipidemia Gastroesophageal reflux disease Esophageal reflux Essential hypertension Unspecified essential hypertension documented in this encounter Care Teams Immigration Lawyer Relationship Specialty Start Date End Date Roni Mckeon MD [address] [place] [address] PCP - General Family Medicine 03/17/21 documented as of this encounter
--- OUTSIDE RECORDS SUMMARY | 2024-09-20 13:42 | XMS_ITS | Encounter Summary ---
[facility] [address] [place] [address] Care Team Providers Care Event Management Consultant Name Role Phone Roni Mckeon MD Primary Care Provider [phone] Reason for Visit * Reason Comments Med Refill Encounter Details Date Type Department Care Team (Late st Contact Info) Description 06/23/2020 Refill [facility] FAM[facility] [address] [facility] [place] [address] Emy Luu, SURGICAL GARMENT ASSEMBLY SUPERVISOR [address] [place] [address] Mixed hyperlipidemia; Gastroesophageal reflux disease Social History Tobacco Use Types Packs/Day Years [...] as of this encounter Visit Diagnoses Diagnosis Mixed hyperlipidemia Gastroesophageal reflux disease Esophageal reflux documented in this encounter Care Teams Event Management Consultant Relationship Specialty Start Date End Date Roni Mckeon MD [address] [place] [address] PCP - General Family Medicine 03/17/21 documented as of this encounter
--- OUTSIDE RECORDS SUMMARY | 2024-09-20 13:42 | XMS_ITS | Clinical Summary ---
[facility] Address [address] [place] [address] Care Team Providers Care Circuit Board Repair Technician Name Role Phone Roni Mckeon MD Primary Care Provider Allergies Active Allergy Reactions Criticality Noted Date Comments Sulfamethoxazole-Trimethoprim Rash Medium 2020 Codeine GI Intolerance Low 09/23/2015 Metronidazole Rash Low 09/23/2015 Shellfish-Derived Products Shortness Of Breath High 12/20/2018 Medications [place]-3 Fatty Acids (FISH OIL) 1000 MG capsule capsule Take 1 capsule by mouth As Needed. 02/15/19 16 Active aspirin 81 MG EC tabletIndications: Coronary artery disease of [place] heart with stable angina pectoris, unspecified vessel or lesion type Take 1 tablet by mouth Daily. Active vitamin C (ASCORBIC ACID) 500 MG tablet Take 1 tablet by mouth Daily. Active Lactobacillus (PROBIOTIC ACIDOPHILUS PO) Take by mouth. Active Misc. Devices (Quad Cane) miscIndications:Ch ronic bilateral low back pain with right-sided sciatica,Hip pain, right,Leg pain, bilateral,Unsteady gait when walking 1 Device Daily As Needed (unsteady gait, hip and back pain). 1 each 11/16/19 20 Active albuterol sulfate HFA (ProAir HFA) 108 (90 Base) MCG/ACT inhalerIndications :Other emphysema Inhale 2 puffs Every 4 (Four) Hours As Needed for Wheezing. 18 g 1 12/26/19 21 Active methocarbamol (ROBAXIN) 750 MG tabletIndications: Muscle cramp Take 1 tablet by mouth 2 (Two) Times a Day. 180 tablet 1 05/19/20 23 Active nitroglycerin (NITROSTAT) 0.4 MG SL tabletIndications: Coronary artery disease of [place] heart with stable angina pectoris, unspecified vessel or lesion type Place 1 tablet under the tongue Every 5 (Five) Minutes As Needed for Chest Pain. Take no more than 3 doses in 15 minutes. 25 tablet 3 09/08/19 Active varenicline (Chantix) 0.5 MG tablet Take 1 tablet by mouth 2 (Two) Times a Day. No further refills. Should be weaned off 60 tablet 1 09/08/19 Active NIFEdipine XL (PROCARDIA XL) 30 MG 24 hr tabletIndications: Coronary artery disease of [place] heart with stable angina pectoris, unspecified vessel or lesion type Take 1 tablet by mouth Daily. 90 tablet 2 09/08/19 Active baclofen (LIORESAL) 10 MG tabletIndications: Muscle cramp Take 1-2 tablets by mouth At Night As Needed for Muscle Spasms. 45 tablet 1 09/08/19 Active glucose blood (FREESTYLE LITE) test strip Use as directed to test three times daily 300 each 3 09/08/19 Active Lancets (freestyle) lancets Use as directed three times daily to test blood sugars 300 each 3 09/08/19 Active DULoxetine (CYMBALTA) 60 MG capsuleIndications :Other depression Take 1 capsule by mouth Daily. 90 capsule 1 12/15/19 Active ibuprofen (ADVIL,MOTRIN) 800 MG tabletIndications: Muscle cramp,Pain in both lower extremities Take 1 tablet by mouth Every 8 (Eight) Hours As Needed for Moderate Pain. 90 tablet 1 12/15/19 Active fluticasone (Flonase) 50 MCG/ACT nasal sprayIndications:S easonal allergic rhinitis due to pollen 2 sprays into the nostril(s) as directed by provider Daily. 16 g 5 12/29/19 Active fluconazole (Diflucan) 150 MG tabletIndications: Yeast vaginitis one by mouth today and repeat in 3 days if not better 2 tablet 1 12/29/19 Active Blood Glucose Monitoring Suppl (FreeStyle Lite) w/Device kit Use 1 kit 3 (Three) Times a Day. 1 kit 12/30/19 Active Insulin Glargine (LANTUS SOLOSTAR) 100 UNIT/ML injection pen Inject 40 Units under the skin into the appropriate area as directed Daily. 45 mL 1 12/30/19 23 Active glucose blood test strip Use as directed three times daily E11.65 300 each 1 01/05/20 23 Active Blood Glucose Monitoring Suppl device Use as directed three times daily E11.65 1 each 01/05/20 23 Active atenolol (TENORMIN) 100 MG tabletIndications: Essential hypertension Take 1 tablet by mouth once daily 90 tablet 04/16/19 24 Active hydroCHLOROthiazid e 25 MG tablet Take 1 tablet by mouth once daily 90 tablet 04/22/19 24 Active glimepiride (AMARYL) 4 MG tablet Take 2 tablets by mouth once daily 60 tablet 04/26/19 24 Active rosuvastatin (CRESTOR) 20 MG tabletIndications: Mixed hyperlipidemia TAKE 1 TABLET BY MOUTH ONCE DAILY AT NIGHT 90 tablet 05/19/19 24 Active ezetimibe (ZETIA) 10 MG tabletIndications: Mixed hyperlipidemia Take 1 tablet by mouth once daily 90 tablet 05/19/19 24 Active Trelegy Ellipta 100-62.5-25 MCG/ACT inhalerIndications :Chronic obstructive pulmonary disease, unspecified COPD type INHALE 1 PUFF ONCE DAILY 180 each 06/30/19 24 Active pantoprazole (PROTONIX) 40 MG EC tabletIndications: Gastroesophageal reflux disease Take 1 tablet by mouth once daily 90 tablet 07/02/19 24 Active losartan (COZAAR) 100 MG tabletIndications: Essential hypertension Take 1 tablet by mouth once daily 90 tablet 07/02/19 24 Active Accu-Chek Softclix Lancets lancets USE 1 TO CHECK GLUCOSE THREE TIMES DAILY DIRECTED 300 each 07/21/19 24 Active BD Pen Needle Sandy 2nd Gen 32G X 4 MM miscIndications:Ty pe 2 diabetes mellitus with hyperglycemia, with long-term current use of insulin FOR USE WITH INSULIN INJECTION ONCE A DAY 100 each 01/14/20 24 Active Active Problems Problem Noted Date Diagnosed Date Chronic obstructive pulmonary disease 02/20/2022 COVID-19 virus infection 04/10/2021 Overview (04/10/2021): Dec, Monoclonal AB in [place] Diabetes mellitus due to und erlying condition with hyperglycemia, with long-term current use of insulin 09/10/2020 History of kidney stones 09/10/2020 Spinal stenosis of lumbar region 07/21/2019 Acute non-recurrent maxillary sinusitis 04/18/19 Hypertension 09/23/2015 Hyperlipidemia 09/23/2015 Immunizations Immunization Administration Dates Next Due Arexvy (RSV, Adults 60+ yrs) 10/13/2022 COVID-19 (MARY KATE) 04/19/2020 Fluzone (or Fluarix & Flulav al for VFC) >6mos 10/13/2022,01/14/2022,12/07/2019 Influenza, Unspecified 01/14/2022 Pneumococcal Conjugate 20-Valent (PCV20) 022 Family History Medical History Relation Name Comments Diabetes Brother Bernardo Marie Heart attack Brother Bernardo Marie Hyperlipidemia Brother Bernardo Marie Hypertension Brother Bernardo Marie Stroke Father Marge Marie Arthritis Maternal Grandmother Ada Jose Elias Cancer Maternal Uncle Antonio Marie Hypertension Mother Eladia Marie Cancer Paternal Aunt Rekha Leroy Stroke Paternal Grandfather Claudio Marie Stroke Paternal Grandmother Larissa Marie Diabetes Sister Gely Kent Hyperlipidemia Sister Gely Kent Hypertension Sister Gely Kent Relation Name Status Comments Brother Bernardo Marie Alive Father Marge Marie Maternal Grandmother Ada Jose Elias Maternal Uncle Antonio Marie Mother Eladia Marie Paternal Aunt Rekha Shetesco Paternal Grandfather Claudio Marie Paternal Grandmother Larissa Marie Sister Gely Kent Alive Social History Tobacco Use Types Packs/Day Years Used Date Smoking Tobacco: Every Day Cigarettes 0.3 34 Smokeless Tobacco: Never Tobacco Cessation:Ready to Q uit: Not Asked; Counseling Given: Not Answered Comments:1 pack weekly Alcohol Use Standard Drinks/Week [...] on file Sexual Orientation Not on file Last Filed Vital Signs Vital Sign Reading Time Taken Comments Blood Pressure 134/86 12/29/2022 2:52 PM EST Pulse 70 12/29/2022 2:52 PM EST Temperature 36.9 C (98.4 F) 12/28/2022 3:34 PM EST Respiratory Rate 18 12/28/2022 3:34 PM EST Oxygen Saturation 95% 12/29/2022 2:52 PM EST Inhaled Oxygen Concentration - - Weight 79.8 kg (176 lb) 12/29/2022 2:52 PM EST Height 165.1 cm (5' 5 ) 12/29/2022 2:52 PM EST Body Mass Index 29.29 12/29/2022 2:52 PM EST Plan of Treatment Health Maintenance Due Date Last Done Comments DXA SCAN 1958 TDAP/TD VACCINES (1 - Tdap) 1977 COLOGUARD 11/12/2003 COLON CANCER SCREENING 5 YEA R SIGMOIDOSCOPY 11/12/2003 CT COLONOGRAPHY 11/12/2003 FECAL OCCULT BLOOD TEST 11/12/2003 FIT Testing (1 year) 11/12/2003 ZOSTER VACCINE (1 of 2) 2008 HEPATITIS C SCREENING 09/23/2015 URINE MICROALBUMIN-CREATININ E RATIO (uACR) 02/18/2020 02/17/2019 DIABETIC FOOT EXAM 11/19/2021 11/19/2020, 1 , 11/19/2020, Additional history exists MAMMOGRAM 05/28/2023 05/27/2021, 05/09, 07/11/2018 HEMOGLOBIN A1C 06/29/2023 12/29/2022, 02/09, 01/25/2022, Additional history exists LIPID PANEL 07/29/2023 07/28/2022, 03/0 04/2021, 10/22/2020, Additional history exists COVID-19 Vaccine (2 5 season) 2023 04/19/2020 DIABETIC EYE EXAM 11/28/2023 11/27/2022 (Suman miller-Reported (Performed Externally)), 09/17/2020 ANNUAL WELLNESS VISIT 12/29/2023 12/28/2022 INFLUENZA VACCINE 11/08/2024 10/13/2022, , 01/14/2022, Additional history exists COLONOSCOPY 07/11/2028 07/11/2018 COLORECTAL CANCER SCREENING 07/11/2028 Pneumococcal Vaccine 50+ Completed 01/14/2022 Procedures Procedure Name Priority Date/Time Associated Diagnosis Comments POCT GLYCOSYLATED HEMOGLOBIN (HGB A1C) Routine 12/29/2022 3:02 PM EST Type 2 diabetes mellitus with hyperglycemia, with long-term current use of insulin LIPID PANEL W/ CHOL/HDL RATIO Routine 07/28/2022 12:45 PM EDT Mixed hyperlipidemia MAMMO OUTSIDE FILMS Routine 05/27/2021 9 :34 AM EDT Encounter for screening mammogram for malignant neoplasm of breast MICROALBUMIN / CREATININE URINE RATIO Routine 02/17/2019 4:40 PM EST from Last 3 Months or Most Recently Relevant to Health Maintenance Results * (ABNORMAL) POC Glycosylated Hemoglobin (Hb A1C) (12/29/2022 3:02 PM EST) Hemoglobin A1C 8.2(A) 4.5 - 5.7 % [facility] Lot Number [id number] [facility] Expiration Date 09-06-24 [facility] Blood 12/29/2022 3:02 PM EST Ely Harry MD POINT OF CARE TEST ORDERABLES F inal Result [facility]
[address] [place] [address], * (ABNORMAL) Lipid Panel With / Chol / HDL Ratio (07/28/2022 12:45 PM EDT) Total Cholesterol 154 100 - 199 mg/dL [facility] Triglycerides 243(H) 0 - 149 mg/dL [facility] HDL Cholesterol 60 >39 mg/dL [facility] VLDL Cholesterol Xander 38 5 - 40 mg/dL [facility] LDL Chol Calc (NIH) 56 0 - 99 mg/dL [facility] Chol/HDL Ratio 2.6 0.0 - 4.4 ratio [facility] Comment: T. Chol/HDL Ratio Men Women 1/2 Avg.Risk 3.4 3.3 Avg.Risk 5.0 4.4 2X Avg.Risk 9.6 7.1 3X Avg.Risk 23.4 11.0 Blood 07/28/2022 12:4 5 PM EDT 07/28/2022 Narrative [facility] - 07/29/2022 5:08 AM EDT Performed at: 01 - [facility] [address] [id number] Worm Grower: Cade Baez PhD, Phone: [phone] Patient Fasting: Y us Roni Mckeon MD LAB BLOOD ORDERABLES Final Resu lt [facility] ([facility]) [address] [place] [address], [place] [phone] [facility] [address] [place] [address], [place] [phone] * MAMMO Outside Films (05/27/2021 9:34 AM EDT) Narrative SYSTEMGENERATED, DOCUMENTATION - 05/27/2021 9:34 AM EDT This procedure was auto-finalized with no dictation required. Roni Mckeon MD IMG MAMMOGRAPHY ORDERABLES Kathleen randi Result * (ABNORMAL) Microalbumin / Creatinine Urine Ratio - (02/17/2019 4:40 PM EST) Creatinine, Urine 32.9 Not Estab. mg/dL [facility] Microalbumin, Urine 61.4 Not Estab. ug/mL [facility] Microalbumin/Cr eatinine Ratio 186.6(H) 0.0 - 30.0 mg/g creat [facility] Comment: Normal: 0.0 - 30.0 Albuminuria: 31.0 - 300.0 Clinical albuminuria: >300.0 Effective February 27, 2019 the reference interval for Albumin/Creatinine Ratio will be changing to: Normal: 0 - 29 Moderately increased: 30 - 300 Severely Increased: >300 The result type will also be changing to 0. 02/17/2019 4:40 PM EST 02/18/2019 Comment:BLOOD Narrative [facility] ([facility]) - 02/18/2019 10:36 AM EST Performed at: 01 - [address] [id number] Worm Grower: Cade Baez PhD, Phone: [phone] Ely Harry MD URINE ORDERABLES Final Result [facility]) [address] [place] [address], [facility] [address] [place] [id number], from Last 3 Months or Most Recently Relevant to Health Maintenance Insurance [employer] MEDICAID [place] [employer] [employer] Care Teams Circuit Board Repair Technician Relationship Specialty Start Date End Date Roni Mckeon MD [facility] [place] [address] PCP - General Family Medicine 03/17/21
--- OUTSIDE RECORDS SUMMARY | 2024-09-20 13:42 | XMS_ITS | Encounter Summary ---
Author Organization [facility] Address [address] [place] [address] Care Team Providers Care Associate Medical Director Name Role Phone Roni Mckeon MD Primary Care Provider [phone] Reason for Visit * Reason Comments Med Refill Encounter Details Date Type Department Care Team (Late st Contact Info) Description 12/24/2020 Refill [facility] [address] [facility] [place] [address] Emy Luu, LIGHTNING ROD ERECTOR [address] [facility] [place], [place] [id number] Reactive depression; Other emphysema; Essential hypertension; Mixed hyperlipidemia Social History Tobacco Use Types Packs/Day Years [...] as of this encounter Visit Diagnoses Diagnosis Reactive depression Other emphysema Essential hypertension Unspecified essential hypertension Mixed hyperlipidemia documented in this encounter Care Teams Associate Medical Director Relationship Specialty Start Date End Date Roni Mckeon MD [address] [place] [address] PCP - General Family Medicine 03/17/21 documented as of this encounter
--- OUTSIDE RECORDS SUMMARY | 2024-09-20 13:42 | XMS_ITS | Encounter Summary ---
[facility] Address [address] [place] [address] Care Team Providers Care Proof Coins Inspector Name Role Phone Roni Mckeon MD Primary Care Provider [phone] Reason for Visit * Reason Onset Date Comments Med Refill 06/23/2020 Encounter Details Date Type Department Care Team (Late st Contact Info) Description 06/23/2020 Refill [facility] FAM[facility] [address] [place] [address] Emy Luu, WHEEL ALIGNMENT MECHANIC [address] [place] [address] Other emphysema Social History Tobacco Use Types Packs/Day Years [...] as of this encounter Visit Diagnoses Diagnosis Other emphysema documented in this encounter Care Teams Proof Coins Inspector Relationship Specialty Start Date End Date Roni Mckeon MD [address] [place] [address] PCP - General Family Medicine 03/17/21 documented as of this encounter
--- OUTSIDE RECORDS SUMMARY | 2024-09-20 13:42 | XMS_ITS | Encounter Summary ---
[facility] Address [address] [place] [address] Care Team Providers Care Bessemer Regulator Name Role Phone Roni Mckeon MD Primary Care Provider [phone] Reason for Visit * Reason Onset Date Comments Med Refill 06/15/2022 Encounter Details Date Type Department Care Team (Late st Contact Info) Description 06/15/2022 Refill [facility] ENDOCRINOLOGY [address] [phone] Ely Harry MD [address] [id number] Social History Tobacco Use Types Packs/Day Years Used Date Smoking Tobacco: Every Day Cigarettes 0.3 34 Smokeless Tobacco: Never Comments:1 pack weekly Alcohol Use Standard Drinks/Week Comments Yes 2 (1 standard drink = 0.6 oz pur e alcohol) Occ PHQ-2 Answer Date Recorded Retired PHQ-9: Brief Depression Severity Measure Score 1 02/20/2022 Comments No Sex and Gender Information Value [...] documented as of this encounter Care Teams Bessemer Regulator Relationship Specialty Start Date End Date Roni Mckeon MD [address] [place] [address] [place] [address] PCP - General Family Medicine 03/17/21 documented as of this encounter
== END 2024-09-20 23:59 | disposition home or self-care (01) ==
LOC: RAD 13:38
PROVIDERS: PCP Internal Medicine; Visit Provider Internal Medicine
DX: M16.0 Bilateral primary osteoarthritis of hip (principal); M51.369 Other intervertebral disc degeneration, lumbar region without mention of lumbar back pain or lower extremity pain
CPT/HCPCS: 72100; 72170